=== PATIENT | female | born 1965 | race Caucasian/White ===

== ENCOUNTER → 2025-08-02 11:23 | Outpatient (REF) | payer OTHER, SELFPAY | LOC: HWRAD 11:23 | PROVIDERS: ATTENDING PHYSICIAN Nurse Practitioner Adult Health | DX: R22.1 Localized swelling, mass and lump, neck (principal) | CPT/HCPCS: 76536 ==

== ENCOUNTER → 2025-09-03 16:12 | Outpatient (REF) | payer OTHER, SELFPAY | LOC: PAVMRI 16:12 | PROVIDERS: ATTENDING PHYSICIAN Specialist; FAMILY PHYSICIAN Family Medicine | DX: M25.512 Pain in left shoulder (principal) | CPT/HCPCS: 73221 ==

== ENCOUNTER → 2025-10-12 10:23 | Outpatient (REF) | payer OTHER, SELFPAY | LOC: PAVMRI 10:23 | PROVIDERS: ATTENDING PHYSICIAN Internal Medicine | DX: M25.512 Pain in left shoulder (principal); G89.29 Other chronic pain; R22.1 Localized swelling, mass and lump, neck; R51.9 Headache, unspecified | CPT/HCPCS: 72141 ==